=== PATIENT | male | born 1975 | race Caucasian/White ===

== ENCOUNTER 2021-05-09 13:39 | Emergency (ER) | payer BC ==
--- NOTE | 2021-05-09 13:43 | EDM.PDOC ---
ED HPI GENERAL MEDICAL PROBLEM - General Stated Complaint: CHEST PAIN Time Seen by Provider: 05/09/21 13:41 - History of Present Illness INITIAL COMMENTS - FREE TEXT/NARRATIVE: History of present illness: The patient reports indigestion type burning in the center of his chest since yesterday. Today he had jaw pain in the left angle of his jaw which is moderately severe. He has been diaphoretic even when he is out of the heat. He is still diaphoretic. Patient's not short of breath or nauseated. Exertion does not really make the pain worse. When I examined the patient he is laying in bed and his pain is gone. The jaw pain started about 10 AM. The patient smokes tobacco. He is treated for blood pressure. His father of myocardial infarction. Review of systems: As per history of present illness and below otherwise all systems reviewed and negative. Past medical history: As per history of present illness and as reviewed below otherwise noncontributory. Surgical history: As per history of present illness and as reviewed below otherwise noncontributory. Social history: No reported history of drug or alcohol abuse. Family history: As per history of present illness and as reviewed below otherwise noncontributory. Physical exam: Constitutional - well developed, well-nourished and in no acute distress HEENT - normocephalic, no evidence of trauma - external nose and mouth normal - no mass in neck and no JVD - mucosae moist EYES - full EOM, PERRL, no icterus - no evidence of inflammation, injection, or drainage Respiratory - no respiratory distress, equal bilateral expansion, lungs clear to auscultation and no abnormal lung sounds Cardiovascular - Regular Rhythm with S1 and S2 appreciated and no murmur, gallop or rub. GI - abdomen soft without distension or organomegaly - normal bowel sounds - no guard or rebound Musculoskeletal no gross deformity of long bones or joints - no tenderness, swelling or edema Neurologic - Alert and oriented times four - CN II-XII grossly intact - motor sensory and coordination symmetrically normal Psychiatric - appropriate mood and affect with normal thought content Hematologic - No petechiae or purpura - mucosa appropriate color and sclera not pale - normal nail bed color and refill Integument - no rash or evidence of trauma - normal turgor Diagnostics: [] Therapeutics: [] Impression: [] Plan: [] Definitive disposition and diagnosis as appropriate pending reevaluation and review of above. Chest Pain Score (Numeric/FACES): 7 - Related Data Allergies Allergy/AdvReac Type Severity Reaction Status Date / Time No Known Allergies Allergy Verified 05/09/21 13:42 Home Meds: Home Meds Sertraline HCl [Zoloft] 50 mg PO DAILY 05/09/21 [History] atorvaSTATin [Lipitor] 20 mg PO DAILY 05/09/21 [History] lisinopriL [Lisinopril] 20 mg PO DAILY 05/09/21 [History] ED ROS GENERAL - Review of Systems Review Of Systems: Comprehensive ROS is negative, except as noted in HPI. ED EXAM, GENERAL - Physical Exam Exam: See Below Free Text/Narrative:: My physical exam as in the HPI #1 Interpretation EKG Interpretation Comments: EKG done at 1332 hrs. sinus rhythm heart rate 80 CT interval 155 axis [address] and T impression normal EKG Course - Vital Signs Text/Narrative:: Pain is gone at 1434. He has not had pain in the ER now is not diaphoretic. Plan to treat as hyperacidity with reflux but because of this vague jaw pain and the risk for coronary vessel disease we will do a troponin IV hours after the onset of that pain. Last Recorded V/S: Last Vital Signs Temp 36.0 C L 05/09/21 13:44 Pulse 87 05/09/21 14:50 Resp 16 05/09/21 14:50 BP 147/96 H 05/09/21 14:50 Pulse Ox 97 05/09/21 14:50 - Orders/Labs/Meds Orders: Active Orders 24 hr Category Date Time Status EKG Documentation Completion [RC] AM Care 05/09/21 13:55 Active Sodium Chloride 0.9% [Saline Flush] Med 05/09/21 13:55 Active 10 ml FLUSH ASDIRECTED PRN Sodium Chloride 0.9% [Saline Flush] Med 05/09/21 13:55 Active 2.5 ml FLUSH ASDIRECTED PRN Saline Lock Insert [OM.PC] Stat Oth 05/09/21 13:55 Ordered Medication Orders Sodium Chloride (Sodium Chloride 0.9% 10 Ml Syringe) 10 ml FLUSH ASDIRECTED PRN PRN Reason: Keep Vein Open Last Admin: 05/09/21 14:48 Dose: 10 ml Documented by: [id number] Sodium Chloride (Sodium Chloride 0.9% 2.5 Ml Syringe) 2.5 ml FLUSH ASDIRECTED PRN PRN Reason: Keep Vein Open Last Admin: 05/09/21 14:49 Dose: 2.5 ml Documented by: [id number] Labs: Laboratory Tests 05/09/21 05/09/21 05/09/21 Range/Units 13:48 13:48 15:00 WBC 8.14 (4.0-11.0) K/uL RBC 4.65 (4.50-5.90) M/uL Hgb 15.0 (13.0-17.0) g/dL Hct 42.4 (38.0-50.0) % MCV 91.2 (80.0-98.0) fL MCH 32.3 H (27.0-32.0) pg MCHC 35.4 (31.0-37.0) g/dL RDW Std Deviation 45.4 (28.0-62.0) fl RDW Coeff of Angela 14 (11.0-15.0) % Plt Count 276 (150-400) K/uL MPV 11.10 (7.40-12.00) fL Neut % (Auto) 62.0 (48.0-80.0) % Lymph % (Auto) 27.6 (16.0-40.0) % Rogers % (Auto) 8.1 (0.0-15.0) % Eos % (Auto) 2.1 (0.0-7.0) % Baso % (Auto) 0.2 (0.0-1.5) % Neut # (Auto) 5.0 (1.4-5.7) K/uL Lymph # (Auto) 2.3 (0.6-2.4) K/uL Rogers # (Auto) 0.7 (0.0-0.8) K/uL Eos # (Auto) 0.2 (0.0-0.7) K/uL Baso # (Auto) 0.0 (0.0-0.1) K/uL Nucleated RBC % 0.0 /100WBC Nucleated RBCs # 0 K/uL Sodium 143 (136-148) mmol/L Potassium 3.9 (3.5-5.1) mmol/L Chloride 103 (98-107) mmol/L Carbon Dioxide 30.4 (21.0-32.0) mmol/L BUN 11 (7.0-18.0) mg/dL Creatinine 1.0 (0.8-1.3) mg/dL Est Cr Clr Drug Dosing 106.53 mL/min Estimated GFR (MDRD) > 60.0 ml/min Glucose 94 (74-106) mg/dL Calcium 9.3 (8.5-10.1) mg/dL Total Bilirubin 0.5 (0.2-1.0) mg/dL AST 25 (15-37) IU/L ALT 72 H (14-63) IU/L Alkaline Phosphatase 82 (46-116) U/L Troponin I < 0.050 < 0.050 (0.000-0.056) ng/mL Total Protein 7.2 (6.4-8.2) g/dL Albumin 4.2 (3.4-5.0) g/dL Globulin 3.0 (2.6-4.0) g/dL Albumin/Globulin Ratio 1.4 (0.9-1.6) Meds: Medications Generic Name Dose Route Start Last Admin Trade Name Freq PRN Reason Stop Dose Admin Sodium Chloride 10 ml 05/09/21 13:55 05/09/21 14:48 Sodium Chloride 0.9% 10 Ml Syringe FLUSH 10 ml ASDIRECTED PRN Administration Keep Vein Open Sodium Chloride 2.5 ml 05/09/21 13:55 05/09/21 14:49 Sodium Chloride 0.9% 2.5 Ml Syringe FLUSH 2.5 ml ASDIRECTED PRN Administration Keep Vein Open Departure - Departure Time of Disposition: 15:52 Disposition: Home, Self-Care 01 Condition: Good Clinical Impression: Gastro-esophageal reflux disease with esophagitis, Jaw pain, non-TMJ - Discharge Information Instructions: Gastroesophageal Reflux Disease, Adult, [id number] Referrals: PCP,None [Primary Care Provider] - Additional Instructions: Because of your risk history you should have a stress test at least there is some sort of cardiology follow-up more than just 2 sets of enzymes and an EKG. Please make an appointment with cardiology or have your family doctor refer you. [facility] - cardiology [address] [place] [id number] Anti-inflammatory medicines would be best for your pain however if you have esophagitis from heartburn these may cause it to be worse. Certainly if you need to take the ibuprofen or naproxen you should take it with a meal or with an antiacid. Please start a proton pump inhibitor such as omeprazole or pantoprazole or similar knees are [id number] available as Prilosec Protonix etc. The pharmacy kits can help you choose the best value. Prop up your bed at night especially if you have eaten recently. Do not eat right before you go to bed [facility] - Primary Care [address] [place] [id number] [facility] [address] [place] [id number] The following information is given to patients seen in the emergency department who are being discharged to home. This information is to outline your options for follow-up care. We provide all patients seen in our emergency department with a follow-up referral. The need for follow-up, as well as the timing and circumstances, are variable depending upon the specifics of your emergency department visit. If you don't have a primary care physician on staff, we will provide you with a referral. We always advise you to contact your personal physician following an emergency department visit to inform them of the circumstance of the visit and for follow-up with them and/or the need for any referrals to a consulting specialist. The emergency department will also refer you to a specialist when appropriate. This referral assures that you have the opportunity for follow-up care with a specialist. All of these measure are taken in an effort to provide you with optimal care, which includes your follow-up. Under all circumstances we always encourage you to contact your private physician who remains a resource for coordinating your care. When calling for follow-up care, please make the office aware that this follow-up is from your recent emergency room visit. If for any reason you are refused follow-up, please contact the Emergency Department at and asked to speak to the emergency department charge nurse. Sepsis Event Note (ED) - Focused Exam Vital Signs: Vital Signs Temp Pulse Resp BP Pulse Ox 05/09/21 14:50 87 16 147/96 H 97 05/09/21 13:44 36.0 C L 82 18 156/100 H 95 - My Orders Last 24 Hours: My Active Orders 05/09/21 13:55 EKG Documentation Completion [RC] AM Sodium Chloride 0.9% [Saline Flush] 10 ml FLUSH ASDIRECTED PRN Sodium Chloride 0.9% [Saline Flush] 2.5 ml FLUSH ASDIRECTED PRN Saline Lock Insert [OM.PC] Stat - Assessment/Plan Last 24 Hours: My Active Orders 05/09/21 13:55 EKG Documentation Completion [RC] AM Sodium Chloride 0.9% [Saline Flush] 10 ml FLUSH ASDIRECTED PRN Sodium Chloride 0.9% [Saline Flush] 2.5 ml FLUSH ASDIRECTED PRN Saline Lock Insert [OM.PC] Stat
[2021-05-09] MEDS ORDERED: Sodium Chloride 0.9% 10 ML Syringe FLUSH PRN (13:55)
[2021-05-09] MEDS ORDERED: Sodium Chloride 0.9% 2.5 ML Syringe FLUSH PRN (13:55)
[2021-05-09 14:18] LABS: BLOOD UREA NITROGEN,BUN 11 mg/dL (7.0-18.0); CARBON DIOXIDE,CO2 30.4 mmol/L (21.0-32.0); CHLORIDE,CL 103 mmol/L (98-107); GLUCOSE RANDOM 94 mg/dL (74-106); POTASSIUM,K 3.9 mmol/L (3.5-5.1); SODIUM,NA 143 mmol/L (136-148)
--- NOTE | 2021-05-09 14:23 | CR ---
HISTORY: Chest pain. TECHNIQUE: One view of the chest. COMPARISON: No prior. FINDINGS: There is no acute lung infiltrate or pulmonary edema. No pneumothorax or pleural effusion. Cardiac size and pulmonary vasculature are within normal limits. No acute bony abnormality. IMPRESSION: No acute disease. Dictated by Skyler Gonzalez MD @ 05/09/2021 2:21:[address] Skyler Gonzalez @ May 09 2021 2:21PM
== END 2021-05-09 16:10 | disposition home or self-care (01) ==
LOC: MW.ED 13:39
DX: K21.00 Gastro-esophageal reflux disease with esophagitis, without bleeding (principal); R68.84 Jaw pain; F17.200 Nicotine dependence, unspecified, uncomplicated
CPT/HCPCS: 36415; 71045; 71045-26; 80053; 84484; 85025; 93005; 93010; 99283; 99285-25